=== PATIENT | male | born 1955 | race Caucasian/White ===

== ENCOUNTER 2018-12-02 14:07 | Observation (INO) | payer BC, MEDICARE ==
[2018-12-02 14:45] LABS: #Eosinphils 0.2 thou/uL (0.0-0.7); #Lymphocytes 1.5 thou/uL (1.20-3.40); #Monocytes 0.7 thou/uL (0.11-0.59); #Neutrophils 6.9 thou/uL (1.40-6.50); %Basophils 0.4 % (0.0-1.0); %Eosinophils 2.1 % (0.0-10.0); %Lymphocytes 16.1 % (21.0-51.0); %Monocytes 7.9 % (0.0-10.0); %Neutrophils 73.5 % (42.0-75.0); Hemoglobin 14.5 g/dL (14.0-18.0); Mean Corpuscular HGB CONC 33.2 g/dL (32.0-36.0); Mean Corpuscular Hemoglobin 30.1 pg (27.0-31.0); Mean Corpuscular Volume 90.6 fL (78.0-98.0); Mean Platelet Volume 7.2 fL (7.4-10.4); Platelet Count 275 thou/uL (130-400); RBC Distribution Width 12.5 % (11.5-14.5); White Blood Cell (WBC) Count 9.4 thou/uL (4.8-10.8)
--- NOTE | 2018-12-02 14:45 | RAD ---
EXAM: Single view of the chest HISTORY: Syncope and vomiting COMPARISON: 01/08/2008 FINDINGS: Single view of the chest shows a normal sized cardiomediastinal silhouette. There is no christina dence of consolidation, mass, or pleural effusion. The bones are unremarkable. IMPRESSION: No evidence of acute cardiopulmonary disease
[2018-12-02] MEDS ORDERED: Metoclopramide HCl 10 MG/2 ML VIAL ONE (14:59)
[2018-12-02 15:07] LABS: ALT (SGPT) 22 U/L (8-55); AST (SGOT) 15 U/L (5-34); Alkaline Phosphatase 82 U/L (40-150); Anion Gap 18 mmol/L (10-20); BUN (Urea Nitrogen) 18 mg/dL (8.4-25.7); Bilirubin, Total 0.5 mg/dL (0.2-1.2); CK (CPK) 249 U/L (30-200); Calc. Creatinine Clearance 0 mL/min (70-130); Calcium 9.7 mg/dL (7.8-10.44); Carbon Dioxide 23 mmol/L (23-31); Chloride 103 mmol/L (98-107); Estimated GFR-MDRD 29; Globulin 2.2 g/dL (2.4-3.5); Glucose 162 mg/dL (80-115); Magnesium 1.5 mg/dL (1.6-2.6); Potassium 4.1 mmol/L (3.5-5.1); Protein, Total 6.2 g/dL (5.8-8.1); Sodium 140 mmol/L (136-145)
[2018-12-02] MEDS ORDERED: Aspirin 325 MG TAB ONE (17:03)
--- NOTE | 2018-12-02 17:03 | NM ---
NM Lung Vent Perf Imaging History: Elevated d-dimer Comparison: Radiograph same day Findings: Ventilation was performed after inhalation of 6.5 mCi xenon-133. Perfusion was performed af ter intravenous administration 5.2 mCi technetium 99m MAA. Adequate aeration of the lungs without air trapping. Perfusion is normal. Impression: Normal examination. No evidence for pulmonary embolism.
[2018-12-02] MEDS ORDERED: Dextrose 5% in Water 1,000 ML IV PRN (17:18)
[2018-12-02] MEDS ORDERED: HumaLOG 300 UNITS/3 ML VIAL SC PRN (17:18)
[2018-12-02] MEDS ORDERED: Dextrose 50% Abboject 50 ML SYRINGE SLOW IVP PRN (17:18)
--- NOTE | 2018-12-02 18:06 | ULT ---
US Carotid Doppler STANDARD History: Syncope Comparison: None. Findings: Real-time grayscale and color evaluation of the extracranial carotid and vertebral arteries was performed. No elevated peak systolic velocities within the internal carotid arteries. No flow can be visualized within the right vertebral artery. Impression: 1. No flow within the right vertebral artery which could be due to the low velocity, ectasia, or occl usion. Nonemergent CT angiogram may be beneficial. 2. No hemodynamically significant stenosis per NASCET criteria.
[2018-12-02 18:17] VITALS: BMI 33.0
[2018-12-02 18:30] LABS: Troponin I Less than 0.010 ng/mL (< 0.028)
[2018-12-02] MEDS: Sodium Chloride 0.9% 1,000 ML IV SCH (20:17)
--- NOTE | 2018-12-02 20:41 | HP ---
CHIEF COMPLAINT: Syncopal episode. HISTORY OF PRESENT ILLNESS: This patient is a 63-year-old male with a history of diabetes mellitus. The patient reports he has had a history of passing out about 4 times since he was 15 years old. Typically, they were related to heat exhaustion or emotional stress. The patient was in his usual state of health today. In fact, he saw his primary care doctor earlier this week and had lab work, which was essentially normal. He presented today via ambulance to the emergency department. He reports he awoke, felt well, ate some meat and eggs for breakfast, then he started helping a friend move and was physically very active. They decided to stop take a break for lunch and when he got there, he just began to eat and felt very poorly. He stated it felt like it has in the past whenever he has had significant hypoglycemic episodes. His friends asked if he was okay and he told them he probably was not. He subsequently became faint, put his head down table, and apparently lost consciousness. They were able to get him down on the floor. Per the records, they indicate the patient was a bit cyanotic. They did call ambulance. When the ambulance got there, started an IV. The patient says he was fully awake at that time, and has remembered everything fully since that time. He feels fine now. He states that he had no associated pain. No chest pain, palpitations, or shortness of breath. He reports that the profound fatigue that he felt prior to the episode was fully resolved. REVIEW OF SYSTEMS: All other systems reviewed. All pertinent positives and negatives noted in the history of present illness. PAST MEDICAL HISTORY: As noted above. The patient has had several syncopal episodes through his life. He has diabetes and hypertension. Based on medications, the patient has hyperlipidemia, hypothyroidism, and testosterone deficiency. PAST SURGICAL HISTORY: Cataract ectomy, ventral hernia repair, partial amputation of the left fifth finger distal digit, and several oral surgeries. FAMILY HISTORY: His father had throat cancer and ultimately of pneumonia. Mother had a coronary artery bypass graft, valve repair, congestive heart failure, and COPD. SOCIAL HISTORY: The patient is a nonsmoker, nondrinker, and nondrug user. He is . He works as a research statistician. He is full code and his would be his surrogate decision maker. CURRENT MEDICATIONS: 1. Lipitor 20 mg p.o. q.h.s. 2. Metformin 1000 mg b.i.d. 3. Lisinopril 20 mg daily. 4. Levothyroxine 50 mcg daily. 5. Doxazosin 8 mg daily. 6. Trulicity 1.5/5 mL subcu every week. 7. Toujeo 50 units IM two times a day. 8. Hydrochlorothiazide 12.5 mg daily. 9. Testosterone 50 mg IM every 2 weeks. PHYSICAL EXAMINATION: VITAL SIGNS: Blood pressure 109/74, pulse 95, respirations 18, temperature 98.1, O2 saturation 100% on room air. GENERAL APPEARANCE: Age-appropriate male. He is in no distress. He is awake, alert, pleasant, and cooperative. His daughter is with him at the bedside. HEENT: ELE. No OP lesions. NECK: Supple and symmetric without lymphadenopathy or JVD. HEART: Regular rate and rhythm with no murmurs, gallops, or rubs. He is in sinus rhythm with a rate of 100 on the monitor. LUNGS: Clear to auscultation bilaterally with good chest wall expansion and air exchange. ABDOMEN: Soft, nontender, nondistended. Positive bowel sounds. No masses. No organomegaly. There is still a soft defect in the midline of the mid abdomen presumably where the prior hernia repair occurred. EXTREMITIES: Have no cyanosis, clubbing, or edema. He has good peripheral pulses. NEUROLOGIC: He is cognitively intact. Spontaneously moves all extremities. There are no evidence of focal deficits. PSYCHIATRIC: Complete normal affect and behavior. LABORATORY DATA: White count 9.4, hemoglobin 14.5, platelets 275. D-dimer 0.46. Sodium 140, potassium 4.1, chloride 103, CO2 is 23, BUN 18, creatinine 2.25, GFR 29, glucose 162, calcium 9.7, magnesium 1.5, AST 15, ALT 22. CK is 249, troponin less than 0.01. Albumin 4. V/Q scan is negative. Chest x-ray negative. EKG shows normal sinus rhythm without significant ischemic changes. IMPRESSION AND PLAN: 1. Loss of consciousness, possible syncopal episode, most likely related to hypoglycemia in the setting of physically working hard on an extremely hot day in a patient who has a fairly low threshold for losing consciousness by history. He appears to be back to baseline at this point. We will keep the patient in observation. I will keep him on telemetry monitoring. We will check echo and carotid Dopplers and serial troponins. 2. Acute kidney injury. The patient has his labs that he can pull up on his phone from earlier this week and his creatinine was 1.37. This represents a significant increase. This may be related to some dehydration. We will recheck his levels in the morning after he has been rehydrated. 3. Diabetes mellitus. Again, may have had an episode of hypoglycemia. We will keep him on metformin and sliding scale insulin, try to avoid further concerns for hypoglycemia. 4. Elevated D-dimer very minimally and V/Q scan was negative. 5. Slight bump in his CK, likely related to the physical labor that he was performing today. 6. Hyperlipidemia. Continue statin. 7. Hypertension. Continue lisinopril. 8. Hypothyroidism. He just had his labs checked at his physician's office. We will not re-evaluate those now. Job ID: [id number]
[2018-12-02 21:20] LABS: Troponin I Less than 0.010 ng/mL (< 0.028)
[2018-12-03] MEDS: Sodium Chloride 0.9% 1,000 ML IV SCH (06:11)
[2018-12-03 06:29] LABS: #Eosinphils 0.2 thou/uL (0.0-0.7); #Lymphocytes 1.4 thou/uL (1.20-3.40); #Monocytes 0.9 thou/uL (0.11-0.59); #Neutrophils 7.2 thou/uL (1.40-6.50); %Basophils 0.5 % (0.0-1.0); %Eosinophils 2.4 % (0.0-10.0); %Lymphocytes 14.2 % (21.0-51.0); %Monocytes 9.2 % (0.0-10.0); %Neutrophils 73.7 % (42.0-75.0); Hemoglobin 13.7 g/dL (14.0-18.0); Mean Corpuscular HGB CONC 33.3 g/dL (32.0-36.0); Mean Corpuscular Hemoglobin 30.4 pg (27.0-31.0); Mean Corpuscular Volume 91.4 fL (78.0-98.0); Mean Platelet Volume 7.1 fL (7.4-10.4); Platelet Count 269 thou/uL (130-400); RBC Distribution Width 12.7 % (11.5-14.5); Red Blood Cell (RBC) Count 4.49 mill/uL (4.70-6.10); White Blood Cell (WBC) Count 9.8 thou/uL (4.8-10.8)
[2018-12-03 06:42] LABS: Anion Gap 11 mmol/L (10-20); BUN (Urea Nitrogen) 22 mg/dL (8.4-25.7); Calc. Creatinine Clearance 66 mL/min (70-130); Calcium 8.8 mg/dL (7.8-10.44); Carbon Dioxide 28 mmol/L (23-31); Chloride 102 mmol/L (98-107); Estimated GFR-MDRD 40; Glucose 88 mg/dL (80-115); Potassium 4.3 mmol/L (3.5-5.1); Sodium 137 mmol/L (136-145)
[2018-12-03] MEDS ORDERED: metFORMIN 500 MG TAB PO SCH (08:00)
[2018-12-03 08:25] VITALS: BP 142/81; TEMP 97.5
[2018-12-03] MEDS ORDERED: Lisinopril 20 MG TAB PO SCH (09:00)
--- NOTE | 2018-12-03 10:29 | PDOC.EVN ---
Event Note - Event Note Event Note: DC SUMMARY #[id number]
--- NOTE | 2018-12-03 11:00 | DIS ---
DATE OF ADMISSION: 12/02/2018 DATE OF DISCHARGE: 12/03/2018 ADMITTING DIAGNOSES: 1. Syncope. 2. Hypertension. 3. Hyperlipidemia. 4. Diabetes mellitus type 2. 5. . 6. Hypothyroidism. 7. Acute kidney injury. DISCHARGE DIAGNOSES: 1. Syncope, resolved. 2. Hypertension. 3. Hyperlipidemia. 4. Diabetes mellitus type 2. 5. . 6. Hypothyroidism. 7. Acute kidney injury, resolved. HOSPITAL COURSE: This is a 63-year-old male, who presented to the hospital complaining of a syncopal episode. The patient was admitted to Internal Medicine Team and had a workup done for syncope. Carotid Doppler studies were negative. The patient also had pulmonary perfusion imaging study, which was negative. His vital signs were improved. At point in time of discharge, his syncopal episodes were resolved. Feeling much better. His kidney injury also had significantly improved with creatinine of 2.25 going down to 1.73. The patient was advised to follow up with his PCP within 1 to 2 weeks and hold all blood pressure medications if his systolic blood pressure falls below 120. At point in time of discharge, the patient's condition was stable. Family at bedside. Case and plan were discussed with the patient at length. He understood and agreed with this plan. Family also stated that they also understood and agreed. DISPOSITION: Home. FOLLOWUP: Follow up with PCP. MEDICATIONS: See MAR. ACTIVITY: As tolerated with assistance as needed. DIET: Low-fat, low-calorie, high-fiber, low sugar, low-salt diet. CONDITION: Stable. PROGNOSIS: Good. Case and plan once again discussed with the patient at length. He understood and agreed with this plan. Job ID: [id number]
--- NOTE | 2018-12-09 14:33 | EKG ---
Test Reason : HYPOTENSIVE Blood Pressure : / mmHG Vent. Rate : 101 BPM Atrial Rate : 101 BPM P-R Int : 152 ms QRS Dur : 082 ms QT Int : 326 ms P-R-T Axes : 037 027 011 degrees QTc Int : 422 ms Sinus tachycardia Nonspecific T wave changes Otherwise normal ECG Confirmed by MIRI WOLF M.D. ([id number]), editor book SHAWN SAAVEDRA ([id number]) on 12/09/2018 2:33:00 PM Referred By: Confirmed By:MIRI WOLF M.D.
== END 2018-12-03 11:32 | disposition home or self-care (01) ==
LOC: ERS 14:07 → 2SW 15:41
PROVIDERS: ADMIT Internal Medicine; ATTEND Internal Medicine
DX: R55 Syncope and collapse (principal); I10 Essential (primary) hypertension; E78.5 Hyperlipidemia, unspecified; E11.9 Type 2 diabetes mellitus without complications; E03.9 Hypothyroidism, unspecified; N17.9 Acute kidney failure, unspecified; R79.1 Abnormal coagulation profile; R74.8 Abnormal levels of other serum enzymes; Z79.4 Long term (current) use of insulin; Z79.899 Other long term (current) drug therapy
CPT/HCPCS: 36415; 36416; 71045; 78582; 80048; 80053; 82550; 83735; 84484; 85025; 85379; 93005; 93306; 93880; 96361; 96374; A9540; A9558; G0378; J2765

== ENCOUNTER 2019-07-15 12:44 | Inpatient (IN) | payer MEDICARE, BC, OTHER ==
[2019-07-15 13:21] LABS: Hemoglobin 13.7 g/dL (14.0-18.0); Mean Corpuscular Hemoglobin 29.6 pg (27.0-31.0); Mean Corpuscular Volume 87.1 fL (78.0-98.0); Mean Platelet Volume 7.7 fL (7.4-10.4); Platelet Count 280 thou/uL (130-400); Red Blood Cell (RBC) Count 4.63 mill/uL (4.70-6.10); White Blood Cell (WBC) Count 6.3 thou/uL (4.8-10.8)
--- NOTE | 2019-07-15 13:23 | RAD ---
Exam: Chest one view HISTORY:Fever. Comparison: 12/02/2018 FINDINGS: Cardiac silhouette: Normal Aorta: Unremarkable Pulmonary vessels: Normal Costophrenic angles: No pleural effusion LUNGS: Bilateral upper lobe alveolar infiltrates with air bronchograms. Pneumothorax: None Osseous abnormalities: None IMPRESSION: Multi lobar pneumonia.
[2019-07-15 13:40] LABS: ALT (SGPT) 101 U/L (8-55); AST (SGOT) 125 U/L (5-34); Albumin 3.4 g/dL (3.4-4.8); Alkaline Phosphatase 165 U/L (40-110); Anion Gap 17 mmol/L (10-20); BUN (Urea Nitrogen) 33 mg/dL (8.4-25.7); Bilirubin, Total 0.8 mg/dL (0.2-1.2); Calc. Creatinine Clearance 0 mL/min (70-130); Calcium 8.7 mg/dL (7.8-10.44); Carbon Dioxide 24 mmol/L (23-31); Chloride 89 mmol/L (98-107); Estimated GFR-MDRD 34; Globulin 3.5 g/dL (2.4-3.5); Glucose 169 mg/dL (80-115); Potassium 3.8 mmol/L (3.5-5.1); Protein, Total 6.9 g/dL (5.8-8.1); Sodium 126 mmol/L (136-145)
[2019-07-15] MEDS ORDERED: Ketorolac Tromethamine 30 MG/ML VIAL ONE ×2 (13:48→14:10)
[2019-07-15 13:53] LABS: Band 58 % (5-11); Eosinophils 2 % (0-10); Lymphocytes 4 % (21-51); MDiff Complete? YES; Macrocytosis SLIGHT = 6-15 cells (100X) (0-5/hpf); Monocytes 8 % (0-10); Neutrophil 28 % (42-75); Platelet Morphology Comment Appears Adequate; Polychromasia SLIGHT = 2-3 cells (100X) (0-2/hpf); Reflex for Review?? YES
[2019-07-15] MEDS ORDERED: Cefepime 2 GM VIAL ONE (14:18)
[2019-07-15] MEDS ORDERED: Loperamide HCl 2 MG CAP PO PRN (14:41)
[2019-07-15] MEDS ORDERED: Ondansetron PF 4 MG/2 ML Vial IVP PRN (14:41)
[2019-07-15] MEDS ORDERED: Bisacodyl 5 MG TAB PO PRN (14:41)
[2019-07-15] MEDS ORDERED: Acetaminophen 325 MG TAB PO PRN (14:41)
[2019-07-15] MEDS ORDERED: Dextrose 50% Abboject 50 ML SYRINGE SLOW IVP PRN (14:43)
[2019-07-15] MEDS ORDERED: Dextrose 5% in Water 1,000 ML IV PRN (14:43)
[2019-07-15] MEDS ORDERED: HumaLOG 300 UNITS/3 ML VIAL SC PRN (14:43)
[2019-07-15] MEDS ORDERED: Melatonin 3 MG TAB PO PRN (14:46)
[2019-07-15] MEDS ORDERED: Labetalol HCl 100 MG/20 ML VIAL SLOW IVP PRN (14:46)
[2019-07-15] MEDS ORDERED: Benzonatate 100 MG CAP PO PRN (14:46)
[2019-07-15] MEDS ORDERED: diphenhydrAMINE 25 MG CAP PO PRN (14:46)
[2019-07-15] MEDS ORDERED: Docusate 100 MG CAP PO PRN (14:46)
--- NOTE | 2019-07-15 15:58 | ULT ---
5.6 x 5.7 x 13.2 Exam: Bilateral renal ultrasound HISTORY: Acute kidney insufficiency. Evaluate for obstruction. COMPARISON: None FINDINGS: Right kidney: Normal cortical echotexture. No hydronephrosis. There is right renal cortical thinning. Right kidney measurements: 5.3 x 5.3 x 12.3 cm. Left kidney: Normal cortical echotexture. No hydronephrosis. There is left renal cortical thinning Left kidney measurements 5.7 x 5.6 x 13.2 cm. Urinary bladder: Normal mucosa. Bilateral ureteral jets are identified. 372 mL bladder volume. IMPRESSION: No hydronephrosis.
[2019-07-15] MEDS ORDERED: cefTRIAXone Sodium 2,000 MG in Syringe 0 ML IVPB SCH (16:45)
--- NOTE | 2019-07-15 16:45 | PDOC.HHP ---
Hospitalist HPI - History of Present Illness Shortness of breath, fever History of Present Illness: Pleasant 64-year-old gentleman with past medical history of insulin-dependent diabetes mellitus, hypertension, hyperlipidemia, BPH, and elevated BMI presents with shortness of breath, cough, and fever. Patient denies travel and denies definitive exposure to patient with Covid 19. He has been feeling ill for about a week. He did a drive through mobile testing through [employer], which was found to be negative. He did not actually go to the hospital and was not admitted to the hospital. Patient saw his primary care physician and thought he might have the flu, though he was not placed on any antibiotics. He has had roughly one week of worsening cough with shortness of breath. His chest x-ray was found have bilateral infiltrates. Patient with normal WBC count, despite not being on antibiotics. Patient is also had associated nausea and vomiting. Patient has had diarrhea. Patient found have abnormal kidney function with dehydration acute kidney injury present on admission. Patient with headache and body aches. Patient has been trying to stay well hydrated and drinking water. Patient found have elevated liver function tests. Due to patient's significant risk factors and no other obvious explanation for bilateral pneumonia, recommending repeat [place] in 19 testing, with a sensitivity of the test there is a significant false-negative testing rate. We will do droplet precautions, IV Antibiotics, breathing treatments. Prognosis guarded. Hospitalist ROS - Review of Systems All other systems reviewed; all pertinent +/- noted in HPI/Subj Hospitalist History - Past Medical History Source: patient, family Cardiac: reports: HTN, Hyperlipidemia. denies: CAD, CHF Pulmonary: reports: hypertension Endocrine: reports: Diabetes (insulin dependent) - Past Surgical History Past Surgical History: reports: Other - Family History Family History: reports: hypertension - Social History Smoking Status: Never smoker Alcohol: reports: None Drugs: reports: none Living Situation: With Family Domestic Violence: Negative Activity level: independent ambulation - Exam General Appearance: ill appearing Eye: PERRL ENT: normocephalic atraumatic, moist mucosa Neck: supple, symmetric, no lymphadenopathy Heart: no murmur, no gallops, no rubs Respiratory: no rales, normal chest expansion, rhonchi, tachypneic, wheezes Gastrointestinal: soft, non-tender, no guarding, no rigidity Extremities: 1+ LE edema Skin: no lesions, no rashes Neurological: cranial nerve grossly intact, no focal deficits Musculoskeletal: generalized weakness Psychiatric: A&O x 3 Hospitalist Results - Labs Result Diagrams: 07/15/19 13:00 07/15/19 13:00 Lab results: WBC 6.3 thou/uL (4.8-10.8) 07/15/19 13:00 Hgb 13.7 g/dL (14.0-18.0) L 07/15/19 13:00 Hct 40.3 % (42.0-52.0) L 07/15/19 13:00 MCV 87.1 fL (78.0-98.0) 07/15/19 13:00 Plt Count 280 thou/uL (130-400) 07/15/19 13:00 Band Neuts % (Manual) 58 % (5-11) H 07/15/19 13:00 Sodium 126 mmol/L (136-145) L 07/15/19 13:00 Potassium 3.8 mmol/L (3.5-5.1) 07/15/19 13:00 Chloride 89 mmol/L (98-107) L 07/15/19 13:00 Carbon Dioxide 24 mmol/L (23-31) 07/15/19 13:00 BUN 33 mg/dL (8.4-25.7) H 07/15/19 13:00 Creatinine 1.96 mg/dL (0.7-1.3) H 07/15/19 13:00 Glucose 169 mg/dL (80-115) H 07/15/19 13:00 Lactic Acid 1.4 mmol/L (0.5-2.2) 07/15/19 14:04 Calcium 8.7 mg/dL (7.8-10.44) 07/15/19 13:00 Total Bilirubin 0.8 mg/dL (0.2-1.2) 07/15/19 13:00 AST 125 U/L (5-34) H 07/15/19 13:00 ALT 101 U/L (8-55) H 07/15/19 13:00 Alkaline Phosphatase 165 U/L (40-110) H 07/15/19 13:00 Serum Total Protein 6.9 g/dL (5.8-8.1) 07/15/19 13:00 Albumin 3.4 g/dL (3.4-4.8) 07/15/19 13:00 - Radiology Interpretation Chest x-ray Status: image reviewed by ca Hospitalist H&P A/P - Problem (1) Bilateral pneumonia Code(s): J18.9 - PNEUMONIA, UNSPECIFIED ORGANISM Status: Acute (2) Viral respiratory illness Code(s): J98.8 - OTHER SPECIFIED RESPIRATORY DISORDERS; B97.89 - OTH VIRAL AGENTS THE CAUSE OF DISEASES CLASSD ELSWHR Status: Acute (3) NILTON (acute kidney injury) Code(s): N17.9 - ACUTE KIDNEY FAILURE, UNSPECIFIED Status: Acute (4) Dehydration Code(s): E86.0 - DEHYDRATION Status: Acute (5) Elevated LFTs Code(s): R94.5 - ABNORMAL RESULTS OF LIVER FUNCTION STUDIES Status: Acute (6) IDDM (insulin dependent diabetes mellitus) Code(s): FSH0672 - Status: Acute (7) HTN (hypertension) Code(s): I10 - ESSENTIAL (PRIMARY) HYPERTENSION Status: Acute (8) HLD (hyperlipidemia) Code(s): E78.5 - HYPERLIPIDEMIA, UNSPECIFIED Status: Acute (9) Hyponatremia Code(s): E87.1 - HYPO-OSMOLALITY AND HYPONATREMIA Status: Acute (10) Shortness of breath Code(s): R06.02 - SHORTNESS OF BREATH Status: Acute (11) Headache Code(s): R51 - HEADACHE Status: Acute (12) BPH (benign prostatic hyperplasia) Code(s): N40.0 - BENIGN PROSTATIC HYPERPLASIA WITHOUT LOWER URINRY TRACT SYMP Status: Acute - Plan Plan: Plan: Admit to medical unit with telemetry nephrology consultation, recommendations appreciated pulmonary specific antibiotics, azithromycin has been shown to be effective in covid patient's Ceftriaxone IV with coverage for community acquired PNA breathing treatments scheduled and as needed, respiratory therapist to modify is appropriate for isolation patient Droplet precautions IV fluid resuscitation for acute kidney injury renal ultrasound rule out obstruction long and short acting insulin for glucose control Tylenol for fever continue other home medications as able blood pressure control G.I. prophylaxis DVT prophylaxis Disposition: Patient has not had definitive exposure to a Covid positive patient. However I do not have a good explanation for a bilateral pneumonia, normal WBC count, elevated LFTs, and acute kidney injury. There is a certain degree of uncertainty with this test and there is an elevated false negative rate. Will also include other respiratory panel. Prognosis guarded.
[2019-07-15 17:32] VITALS: BMI 32.1
[2019-07-15] MEDS ORDERED: Piperacillin/Tazobactam 3.375 GM in Sodium Chloride 0.9% 100 ML IVPB SCH (18:00)
[2019-07-15] MEDS: cefTRIAXone\\ROCEPHIN 2 GM in Sodium Chloride 0.9% 100 ML IVPB SCH (18:26)
[2019-07-15] MEDS: Heparin 5,000 UNITS/ML VIAL SC SCH ×2 (18:26→20:20)
[2019-07-15] MEDS: Azithromycin 500 MG in Sodium Chloride 0.9% 250 ML 250 ML IVPB SCH (18:26)
[2019-07-15] MEDS ORDERED: Albuterol 200 PUFF (6.7GM INHALER) INH PRN (19:26)
[2019-07-15] MEDS: NS 0.9% w/ 40 MEQ KCL 1,000 ML IV SCH (20:11)
[2019-07-15] MEDS: Lisinopril 20 MG TAB PO SCH (20:20)
[2019-07-15] MEDS ORDERED: INSULIN GLARGINE HUM REC ANLOG 50 UNIT SQ SCH (21:00)
[2019-07-15] MEDS: Doxazosin Mesylate 4 MG TAB PO SCH (21:55)
[2019-07-15] MEDS: Insulin Glargine 40 UNITS in Pre-Filled Syringe 1 EACH SC SCH (21:56)
[2019-07-15] MEDS: Albuterol 200 PUFF (6.7GM INHALER) INH SCH (22:05)
[2019-07-16] MEDS: NS 0.9% w/ 40 MEQ KCL 1,000 ML IV SCH ×3 (03:45→21:54)
[2019-07-16] MEDS: Albuterol 200 PUFF (6.7GM INHALER) INH SCH ×6 (03:46→22:02)
[2019-07-16 05:42] LABS: #Eosinphils 0.3 thou/uL (0.0-0.7); #Lymphocytes 0.5 thou/uL (1.20-3.40); #Monocytes 0.6 thou/uL (0.11-0.59); #Neutrophils 3.4 thou/uL (1.40-6.50); %Eosinophils 6.1 % (0.0-10.0); %Lymphocytes 10.7 % (21.0-51.0); %Monocytes 12.7 % (0.0-10.0); %Neutrophils 70.4 % (42.0-75.0); Hemoglobin 11.6 g/dL (14.0-18.0); Mean Corpuscular HGB CONC 33.9 g/dL (32.0-36.0); Mean Corpuscular Hemoglobin 29.6 pg (27.0-31.0); Mean Corpuscular Volume 87.3 fL (78.0-98.0); Mean Platelet Volume 7.4 fL (7.4-10.4); Platelet Count 273 thou/uL (130-400); Red Blood Cell (RBC) Count 3.93 mill/uL (4.70-6.10); White Blood Cell (WBC) Count 4.8 thou/uL (4.8-10.8)
[2019-07-16] MEDS: Levothyroxine 150 MCG TAB PO SCH (06:01)
[2019-07-16 06:05] LABS: Anion Gap 10 mmol/L (10-20); BUN (Urea Nitrogen) 28 mg/dL (8.4-25.7); Calc. Creatinine Clearance 72 mL/min (70-130); Calcium 7.8 mg/dL (7.8-10.44); Carbon Dioxide 25 mmol/L (23-31); Chloride 98 mmol/L (98-107); Estimated GFR-MDRD 45; Glucose 71 mg/dL (80-115); Potassium 3.4 mmol/L (3.5-5.1); Sodium 130 mmol/L (136-145)
[2019-07-16] MEDS: Heparin 5,000 UNITS/ML VIAL SC SCH ×2 (08:08→21:51)
[2019-07-16] MEDS: Famotidine 20 MG TAB PO SCH (08:08)
--- NOTE | 2019-07-16 08:54 | PDOC.HOSPP ---
- Subjective Encounter Date: 07/16/19 Encounter Time: 12:40 Subjective: Patient with improved SOB and cough. No chest pain. No fever. Some loose stools since starting the abx, but just once today. No N/V. - Objective Vital Signs & Weight: Vital Signs (12 hours) Temp Pulse Resp BP Pulse Ox 07/16/19 08:00 98.1 F 89 18 134/69 96 07/16/19 03:29 99.4 F 69 18 119/68 95 07/16/19 00:00 98.8 F 95 17 139/65 96 Weight Weight 237 lb 3.2 oz I&O: 07/15/19 07/16/19 07/17/19 06:59 06:59 06:59 Intake Total 240 Output Total 600 Balance -360 Result Diagrams: 07/16/19 05:25 07/16/19 05:25 Additional Labs: Accuchecks 07/16/19 07/15/19 07/15/19 05:36 20:34 18:28 POC Glucose 76 132 H 126 H Hospitalist ROS - Review of Systems Constitutional: denies: fever, chills Respiratory: reports: cough. denies: shortness of breath Cardiovascular: denies: chest pain, palpitations Gastrointestinal: reports: diarrhea. denies: nausea, vomiting, abdominal pain - Medication Medications: Active Medications Generic Name Dose Route Start Last Admin Trade Name Freq PRN Reason Stop Dose Admin Albuterol Sulfate 2 puff 07/15/19 22:30 07/16/19 06:01 Proventil Hfa INH 2 puff [id number] HAN Administration Doxazosin Mesylate 8 mg 07/15/19 21:00 07/15/19 21:55 Cardura PO 8 mg HS HAN Administration Famotidine 20 mg 07/16/19 09:00 07/16/19 08:08 Pepcid PO 20 mg DAILY HAN Administration Heparin Sodium (Porcine) 5,000 units 07/15/19 15:00 07/16/19 08:08 Heparin SC 5,000 units TID HAN Administration Potassium Chloride/Sodium Chloride 1,000 mls @ 100 mls/hr 07/15/19 15:00 08:08 Ns 0.9% W/ 40 Meq Kcl IV 1,000 mls .Q10H HAN Administration Insulin Glargine 40 units/ 0.4 mls @ 0 mls/hr 07/15/19 21:00 07/15/19 21:56 Miscellaneous Medication SC 0.4 mls BID HAN Administration Azithromycin 500 mg/ Sodium 250 mls @ 250 mls/hr 07/15/19 17:00 07/15/19 18: 26 Chloride IVPB 250 mls 1700 HAN Administration Ceftriaxone Sodium 2 gm/ 100 mls @ 200 mls/hr 07/15/19 18:00 07/15/19 18:26 Sodium Chloride IVPB 100 mls 1800 HAN Administration Levothyroxine Sodium 150 mcg 07/16/19 06:00 07/16/19 06:01 Synthroid PO 150 mcg 0600 HAN Administration Lisinopril 20 mg 07/15/19 21:00 07/15/19 20:20 Zestril PO 20 mg HS HAN Administration - Exam General Appearance: NAD, awake alert ENT: moist mucosa Heart: RRR, no murmur, no gallops, no rubs Respiratory: CTAB, no wheezes, no rales, no ronchi Gastrointestinal: soft, non-tender, non-distended, normal bowel sounds Psychiatric: normal affect, normal behavior, A&O x 3 Hosp A/P (1) Bilateral pneumonia Code(s): J18.9 - PNEUMONIA, UNSPECIFIED ORGANISM Status: Acute (2) Viral respiratory illness Code(s): J98.8 - OTHER SPECIFIED RESPIRATORY DISORDERS; B97.89 - OTH VIRAL AGENTS THE CAUSE OF DISEASES CLASSD ELSWHR Status: Acute (3) NILTON (acute kidney injury) Code(s): N17.9 - ACUTE KIDNEY FAILURE, UNSPECIFIED Status: Acute (4) Elevated LFTs Code(s): R94.5 - ABNORMAL RESULTS OF LIVER FUNCTION STUDIES Status: Acute (5) Hyponatremia Code(s): E87.1 - HYPO-OSMOLALITY AND HYPONATREMIA Status: Acute (6) Hypokalemia Code(s): E87.6 - HYPOKALEMIA Status: Acute (7) Dehydration Code(s): E86.0 - DEHYDRATION Status: Acute (8) IDDM (insulin dependent diabetes mellitus) Code(s): [id number] - Status: Chronic (9) BPH (benign prostatic hyperplasia) Code(s): N40.0 - BENIGN PROSTATIC HYPERPLASIA WITHOUT LOWER URINRY TRACT SYMP Status: Chronic (10) HLD (hyperlipidemia) Code(s): E78.5 - HYPERLIPIDEMIA, UNSPECIFIED Status: Chronic (11) HTN (hypertension) Code(s): I10 - ESSENTIAL (PRIMARY) HYPERTENSION Status: Chronic - Plan Continue abx, inhalers, IV fluids Replete potassium Covid-19 repeat testing pending, Flu and respiratory panel negative O2 sats holding up well on RA
[2019-07-16] MEDS ORDERED: Potassium Chloride 20 MEQ TAB PO SCH (09:00)
[2019-07-16] MEDS ORDERED: Prevnar 13-Val Conj/PF 0.5 ML SYRINGE IM ONE (09:00)
[2019-07-16] MEDS: Insulin Glargine 40 UNITS in Pre-Filled Syringe 1 EACH SC SCH ×2 (11:07→21:52)
[2019-07-16] MEDS: HumaLOG 300 UNITS/3 ML VIAL SC PRN ×2 (12:09→17:04)
--- NOTE | 2019-07-16 16:23 | CON ---
DATE OF CONSULTATION: CONSULTING PHYSICIAN: Myriam Clemente MD REQUESTING PHYSICIAN: Graeme Mayen DO REASON FOR CONSULTATION: Hyponatremia. IMPRESSION: 1. Hyponatremia. This is likely in the context of hydrochlorothiazide usage; however, cannot completely rule out a component of syndrome of inappropriate antidiuretic hormone secretion in the context of pulmonary pathology. 2. Acute on chronic kidney disease. PLAN: 1. Renally dose all medications. Therefore, we will change the heparin to b.i.d. dosing. 2. Urine chemistry especially urine osmolality and urine sodium to evaluate for potential SIADH. 3. Gentle hydration. 4. Further management will be dependent on the clinical course. HISTORY OF PRESENT ILLNESS: History is that of a 64-year-old gentleman, who presented here with shortness of breath and fever with a history of diabetes mellitus and hypertension. On clinical evaluation, the patient was noted to have sodium level of 126 as well as elevated creatinine of 1.96. As a result of these findings, decision has been taken to involve Renal in the management of this case. PAST MEDICAL HISTORY: Significant for hypertension, dyslipidemia, and diabetes mellitus type 2. MEDICATIONS: Reviewed and as documented on [employer]. REVIEW OF SYSTEMS: As documented in the body of the history. All the other systems did not reveal significantly related to presenting illness. SOCIAL HISTORY: No alcohol. No tobacco. No illicit drug use. LABORATORY INVESTIGATION: Showed a sodium of 126, creatinine of 1.96, and BUN of 33. PHYSICAL EXAMINATION: GENERAL: The patient was found to be in some respiratory distress. VITAL SIGNS: Noted with the following vital signs; afebrile, temperature 97.9, pulse 91, respiratory rate of 16, and O2 saturations are 94% with a blood pressure 131/75. HEENT: Unremarkable. CARDIOVASCULAR SYSTEM: First and second heart sounds were heard. RESPIRATORY: Clear to auscultation, which showed some rales. DIGESTIVE SYSTEM: Revealed a benign abdomen. EXTREMITIES: No peripheral edema. SKIN: No new gross rash. LYMPHATICS: No peripheral lymphadenopathy. SUMMARY: A 64-year-old gentleman, who presented here with shortness of breath and noted with low sodium level as well as elevated creatinine. Thank you for this consultation. We will follow with you. Job ID: [id number]
[2019-07-16] MEDS: Azithromycin 500 MG in Sodium Chloride 0.9% 250 ML 250 ML IVPB SCH (16:40)
[2019-07-16] MEDS ORDERED: Vancomycin HCl 1.25 GM in Sodium Chloride 0.9% 250 ML 250 ML IVPB SCH (17:00)
[2019-07-16] MEDS: cefTRIAXone\\ROCEPHIN 2 GM in Sodium Chloride 0.9% 100 ML IVPB SCH (17:57)
[2019-07-16] MEDS: Doxazosin Mesylate 4 MG TAB PO SCH (21:53)
[2019-07-16] MEDS: Lisinopril 20 MG TAB PO SCH (21:53)
[2019-07-17] MEDS: Albuterol 200 PUFF (6.7GM INHALER) INH SCH ×3 (03:00→10:22)
[2019-07-17 04:48] LABS: Anion Gap 12 mmol/L (10-20); BUN (Urea Nitrogen) 18 mg/dL (8.4-25.7); Calc. Creatinine Clearance 83 mL/min (70-130); Calcium 8.2 mg/dL (7.8-10.44); Carbon Dioxide 21 mmol/L (23-31); Chloride 104 mmol/L (98-107); Estimated GFR-MDRD 53; Glucose 71 mg/dL (80-115); Potassium 4.2 mmol/L (3.5-5.1); Sodium 133 mmol/L (136-145)
[2019-07-17 04:52] LABS: Band 1 % (5-11); Eosinophils 1 % (0-10); Hemoglobin 11.7 g/dL (14.0-18.0); Hypochromia SLIGHT = 6-15 cells (100X) (0-5/hpf); Lymphocytes 9 % (21-51); MDiff Complete? YES; Mean Corpuscular HGB CONC 33.7 g/dL (32.0-36.0); Mean Corpuscular Volume 89.1 fL (78.0-98.0); Mean Platelet Volume 7.5 fL (7.4-10.4); Monocytes 12 % (0-10); Neutrophil 77 % (42-75); Platelet Count 305 thou/uL (130-400); Platelet Morphology Comment Appears Adequate; RBC Distribution Width 13.2 % (11.5-14.5); Red Blood Cell (RBC) Count 3.91 mill/uL (4.70-6.10); White Blood Cell (WBC) Count 6.2 thou/uL (4.8-10.8)
[2019-07-17] MEDS: Levothyroxine 150 MCG TAB PO SCH (05:15)
[2019-07-17] MEDS: NS 0.9% w/ 40 MEQ KCL 1,000 ML IV SCH (07:57)
[2019-07-17 08:09] VITALS: BP 156/85; TEMP 98.1
[2019-07-17] MEDS: Heparin 5,000 UNITS/ML VIAL SC SCH (09:17)
[2019-07-17] MEDS: Famotidine 20 MG TAB PO SCH (09:18)
[2019-07-17] MEDS: Insulin Glargine 40 UNITS in Pre-Filled Syringe 1 EACH SC SCH (09:27)
--- NOTE | 2019-07-17 09:59 | PDOC.HOSPP ---
- Subjective Encounter Date: 07/17/19 Encounter Time: 10:40 Subjective: Patient feeling much better. No cough. No SOB. One loose stool per day. No fever. Ready to go home. COVID test negative. - Objective Vital Signs & Weight: Vital Signs (12 hours) Temp Pulse Resp BP Pulse Ox 07/17/19 08:00 98.1 F 88 16 156/85 H 96 07/17/19 04:00 76 18 129/72 97 07/17/19 00:00 98.9 F 80 18 130/77 95 Weight Admit Weight 237 lb 3.2 oz Weight 237 lb 3.2 oz I&O: 07/16/19 07/17/19 07/18/19 06:59 06:59 06:59 Intake Total 240 3800 Output Total 600 1100 Balance -360 2700 Result Diagrams: 07/17/19 03:51 07/17/19 03:51 Additional Labs: Accuchecks 07/17/19 07/17/19 07/16/19 06:00 05:18 20:24 POC Glucose 82 74 182 H 07/16/19 07/16/19 16:41 11:32 POC Glucose 197 H 156 H Hospitalist ROS - Review of Systems Constitutional: denies: fever, chills Respiratory: denies: cough, shortness of breath Cardiovascular: denies: chest pain, palpitations Gastrointestinal: reports: diarrhea. denies: nausea, vomiting, abdominal pain Genitourinary: denies: dysuria, hematuria - Medication Medications: Active Medications Generic Name Dose Route Start Last Admin Trade Name Freq PRN Reason Stop Dose Admin Albuterol Sulfate 2 puff 07/15/19 22:30 07/17/19 07:35 Proventil Hfa INH 2 puff [id number] [id number] Administration Doxazosin Mesylate 8 mg 07/15/19 21:00 07/16/19 21:53 Cardura PO 8 mg HS HAN Administration Famotidine 20 mg 07/16/19 09:00 07/17/19 09:18 Pepcid PO 20 mg DAILY HAN Administration Heparin Sodium (Porcine) 5,000 units 07/16/19 21:00 07/17/19 09:17 Heparin SC 5,000 units BID HAN Administration Potassium Chloride/Sodium Chloride 1,000 mls @ 100 mls/hr 07/15/19 15:00 07:57 Ns 0.9% W/ 40 Meq Kcl IV 1,000 mls .Q10H HAN Administration Insulin Glargine 40 units/ 0.4 mls @ 0 mls/hr 07/15/19 21:00 07/17/19 09:27 Miscellaneous Medication SC Not Given BID HAN Azithromycin 500 mg/ Sodium 250 mls @ 250 mls/hr 07/15/19 17:00 07/16/19 16: 40 Chloride IVPB 250 mls 1700 HAN Administration Ceftriaxone Sodium 2 gm/ 100 mls @ 200 mls/hr 07/15/19 18:00 07/16/19 17:57 Sodium Chloride IVPB 100 mls 1800 HAN Administration Insulin Human Lispro 0 units 07/15/19 14:43 07/16/19 17:04 Humalog SC 3 unit .AGGRESSIVE SLIDING PRN Administration Aggressive Correctional Scale Levothyroxine Sodium 150 mcg 07/16/19 06:00 07/17/19 05:15 Synthroid PO 150 mcg 0600 HAN Administration Lisinopril 20 mg 07/15/19 21:00 07/16/19 21:53 Zestril PO 20 mg HS HAN Administration Sodium Chloride 10 ml 07/16/19 21:00 07/16/19 21:54 Flush - Normal Saline IVF 10 ml Q12HR HAN Administration - Exam General Appearance: NAD, awake alert ENT: moist mucosa Heart: RRR, no murmur, no gallops, no rubs Respiratory: CTAB, no wheezes, no rales, no ronchi Gastrointestinal: soft, non-tender, non-distended, normal bowel sounds Psychiatric: normal affect, normal behavior, A&O x 3 Hosp A/P (1) Bilateral pneumonia Code(s): J18.9 - PNEUMONIA, UNSPECIFIED ORGANISM Status: Acute (2) Viral respiratory illness Code(s): J98.8 - OTHER SPECIFIED RESPIRATORY DISORDERS; B97.89 - OTH VIRAL AGENTS THE CAUSE OF DISEASES CLASSD [id number] Status: Acute (3) NILTON (acute kidney injury) Code(s): N17.9 - ACUTE KIDNEY FAILURE, UNSPECIFIED Status: Acute (4) Elevated LFTs Code(s): R94.5 - ABNORMAL RESULTS OF LIVER FUNCTION STUDIES Status: Acute (5) Hyponatremia Code(s): E87.1 - HYPO-OSMOLALITY AND HYPONATREMIA Status: Acute (6) Hypokalemia Code(s): E87.6 - HYPOKALEMIA Status: Resolved (7) Dehydration Code(s): E86.0 - DEHYDRATION Status: Resolved (8) IDDM (insulin dependent diabetes mellitus) Code(s): WVM2412 - Status: Chronic (9) BPH (benign prostatic hyperplasia) Code(s): N40.0 - BENIGN PROSTATIC HYPERPLASIA WITHOUT LOWER URINRY TRACT SYMP Status: Chronic (10) HLD (hyperlipidemia) Code(s): E78.5 - HYPERLIPIDEMIA, UNSPECIFIED Status: Chronic (11) HTN (hypertension) Code(s): I10 - ESSENTIAL (PRIMARY) HYPERTENSION Status: Chronic - Plan Can switch to oral abx. Covid-19 repeat testing negative as well. With low risk and 2 neg tests will d/ c contact precautions. Flu and respiratory panel negative O2 sats holding up well on RA Creatinine improved and sodium improved, likely due to HCTZ, will d/c Home today
--- NOTE | 2019-07-17 13:49 | DIS ---
DATE OF ADMISSION: 07/15/2019 DATE OF DISCHARGE: 07/17/2019 PRIMARY CARE DOCTOR: Dr. Juventino Alberts. REASON FOR ADMISSION: Pneumonia. DIAGNOSES AT DISCHARGE: 1. Bilateral pneumonia, bacterial versus viral. 2. Acute kidney injury, resolved. 3. Hyponatremia secondary to hydrochlorothiazide. 4. Elevated liver function tests. 5. Dehydration, resolved. 6. Insulin-dependent diabetes mellitus. 7. Benign prostatic hyperplasia. 8. Hyperlipidemia. 9. Hypertension. PROCEDURES: 1. Chest x-ray showing bilateral multilobar pneumonia. 2. Renal ultrasound showing no hydronephrosis. CONSULTATIONS: Nephrology, Dr. Miguel. SUMMARY OF HOSPITAL COURSE: This is a 64-year-old male with history of insulin-dependent diabetes mellitus, who presented with shortness of breath, cough, and fever. No travel or definitive COVID-19 exposure. Had been ill for about a week. He did a drive-through mobile testing with [facility], was found to be negative for COVID, was never evaluated beyond that. He came to the ER. He was found to have bilateral infiltrates with a normal white blood cell count. He also had some diarrhea. He was found to have dehydration, acute kidney injury, and hyponatremia as well. The patient also had elevated liver function tests. Overall, it looked like a viral pneumonia picture. He was started on antibiotics, but a repeat COVID testing was sent and the patient was put on COVID precautions. His COVID test did come back negative. His respiratory symptoms completely resolved. He had one loose stool per day and his hydrochlorothiazide was held and his sodium came up and his creatinine returned to normal. Dr. Miguel was consulted and recommended just fluids and holding hydrochlorothiazide for now. The patient was doing well on the day of discharge and is being discharged home. DISCHARGE MANAGEMENT: Discharged home. FOLLOWUP: Follow up with Dr. Alberts in one week to recheck sodium and liver function tests. ACTIVITY: As tolerated. DIET: Diabetic diet. ISOLATION PRECAUTIONS: The patient should avoid contact with others for one week just in case of a negative test until he would be outside of the infectious period and then adhere to general social distancing practices as per the rest of the population. DISCHARGE MEDICATIONS: 1. Azithromycin 250 mg daily for 2 more days. 2. Cefdinir 300 mg twice a day for 4 more days. 3. Atorvastatin 20 mg daily. 4. Doxazosin 8 mg at night. 5. Levothyroxine 150 mcg daily. 6. Lisinopril 20 mg at night. 7. Metformin 1000 mg twice a day. 8. Trulicity 1.5 mg subcu weekly. 9. Lantus 50 units subcu twice a day, decreased this if he is not able to take a normal diet. 10. Testosterone 1.5 mL IM q.2 weeks. 11. Discontinue hydrochlorothiazide. Job ID: [id number]
[2019-07-17] MEDS ORDERED: metFORMIN 500 MG TAB PO SCH (17:00)
--- NOTE | 2019-07-17 17:07 | PRG ---
DATE OF SERVICE: 07/17/2019 SUBJECTIVE: The patient noted with the following vital signs. OBJECTIVE: VITAL SIGNS: Afebrile, temperature 98.1, pulse 88, respiratory rate of 16, O2 saturations of 96%, blood pressure 156/85. HEENT: Unremarkable. CARDIOVASCULAR SYSTEM: First and second heart sounds were heard. RESPIRATORY SYSTEM: Clear to auscultation. DIGESTIVE SYSTEM: Revealed a benign abdomen with positive bowel sounds. EXTREMITIES: No peripheral edema. SKIN: No new gross rash. LYMPHATICS: No peripheral lymphadenopathy. IMPRESSION: Hyponatremia which has improved with a sodium of 133. PLAN: 1. Continue current supportive measures . 2. Further management to be dependent on the clinical course. Job ID: [id number]
[2019-07-17] MEDS ORDERED: Non-Formulary Item 1 EACH (Metformin Hcl [Metformin Hcl] 1 TAB) PO SCH (21:00)
[2019-07-18] MEDS ORDERED: Atorvastatin Calcium 20 MG TAB PO SCH (09:00)
[2019-07-24] MEDS ORDERED: DULAGLUTIDE SQ SCH (09:00)
== END 2019-07-17 11:45 | disposition home or self-care (01) | DRG 682 ==
LOC: ERS 12:44 → 2NO 14:50
PROVIDERS: ADMIT Internal Medicine; ATTEND Internal Medicine
DX: N17.9 Acute kidney failure, unspecified (principal); J12.9 Viral pneumonia, unspecified; E87.1 Hypo-osmolality and hyponatremia; T50.2X5A Adverse effect of carbonic-anhydrase inhibitors, benzothiadiazides and other diuretics, initial encounter; R79.89 Other specified abnormal findings of blood chemistry; E86.0 Dehydration; N40.0 Benign prostatic hyperplasia without lower urinary tract symptoms; E03.9 Hypothyroidism, unspecified; E87.6 Hypokalemia; I12.9 Hypertensive chronic kidney disease with stage 1 through stage 4 chronic kidney disease, or unspecified chronic kidney disease; E11.22 Type 2 diabetes mellitus with diabetic chronic kidney disease; N18.9 Chronic kidney disease, unspecified; E78.5 Hyperlipidemia, unspecified; Z79.4 Long term (current) use of insulin; Z20.828 Contact with and (suspected) exposure to other viral communicable diseases
CPT/HCPCS: 36415; 36416; 71045; 76770; 80048; 80053; 83605; 83935; 84300; 85025; 85060; 87040; 87633; 87804; 96365; 96366; 96367; 96375; J0456; J0692; J0696; J1644; J1815; J1885; J1956; J3370; J3480; J3490; J7050; U0001